=== PATIENT | male | born 1925 | race Caucasian/White ===

== ENCOUNTER 2016-05-14 11:15 | Emergency (ER) | payer MEDICARE, BC ==
--- NOTE | 2016-05-14 12:23 | ED Physician Documentation ---
PD HPI LOWER EXT INJURY - Stated complaint Stated Complaint: BOTH LEG PAIN - Chief complaint Chief Complaint: Ext Problem - History obtained from History obtained from: Patient - History of Present Illness PD HPI LOW EXT INJURY LOCATION: Both, Hip, Upper leg, Knee Type of injury: Other (no noted injury, but has onset of pain in both hips and thighs onset yesterday. Feeling like legs are weaker with walking but they move well when sitting/lying. No numbness nor swelling in lower legs.). No: Fall, Twist Where injury occurred: Home Timing - onset: Yesterday (onset some yesterday with notable worsening today when awoke from bed.) Timing - duration: Days (1) Worsened by: Moving, Palpating Associated symptoms: No: Weakness, Numbness, Swelling Similar symptoms before: Has not had sx before Recently seen: Not recently seen (but did start an OTC sleep aid a few days ago , mainly herbal med.) Review of Systems Constitutional: reports: Myalgias. denies: Fever, Chills, Fatigue Nose: denies: Rhinorrhea / runny nose, Congestion Throat: denies: Sore throat Cardiac: denies: Chest pain / pressure, Palpitations Respiratory: denies: Dyspnea, Cough, Wheezing GI: denies: Abdominal Pain, Nausea, Vomiting, Diarrhea : denies: Incontinent Skin: denies: Rash, Lesions Musculoskeletal: reports: Back pain (mild lower lumbar but not limited ROM compared to normal) Neurologic: denies: Focal weakness, Numbness PD PAST MEDICAL HISTORY - Past Medical History Past Medical History: Yes Cardiovascular: High cholesterol Neuro: Other Other Past Medical History: hydrocephalus - Past Surgical History Past Surgical History: Yes Neuro: AUTO MOTOR MECHANIC shunt - Present Medications Home Medications: Ambulatory Orders Medication Instructions Recorded Confirmed Aspirin [Aspir 81] 81 mg PO DAILY 10/30/12 10/30/12 Simvastatin [Zocor] 40 mg PO QPM 10/30/12 10/30/12 Naproxen 375 mg PO BID #20 tablet 05/14/16 Tramadol HCl 50 mg PO Q6H PRN #20 tablet 05/14/16 - Allergies Allergies/Adverse Reactions: Allergies Allergy/AdvReac Type Severity Reaction Status Date / Time No Known Drug Allergies Allergy Verified 07/07/15 17:29 - Social History Does the pt smoke?: No Smoking Status: Never smoker Does the pt drink ETOH?: Yes ETOH Use: Wine Does the pt have substance abuse?: No - Family History Family history: reports: Non contributory - Immunizations Immunizations are current?: Yes - POLST Patient has POLST: No PD ED PE NORMAL - Vitals Vital signs reviewed: Yes - General General: Alert and oriented X 3, No acute distress, Well developed/nourished, Other (able to walk with walker adequately. ) - Neck Neck: Supple, no meningeal sign, No bony TTP, No adenopathy - Cardiac Cardiac: RRR, No murmur - Respiratory Respiratory: Clear bilaterally - Abdomen Abdomen: Normal bowel sounds, Soft, Non tender - Male Male : Deferred - Rectal Rectal: Deferred - Back Back: No CVA TTP, No spinal TTP - Derm Derm: Normal color, Warm and dry, No rash - Extremities Extremities: No edema, No calf tenderness / cord, Other (good pulses, color and cap refill in toes and feet. No edema. Tenderness in thigh muscles without redness/swelling. ) - Neuro Neuro: No motor deficit, No sensory deficit Results - Vitals Vitals: Vital Signs - 24 hr 05/14/16 05/14/16 11:24 14:33 Temperature 36.8 C Heart Rate 59 L 56 L Respiratory 18 19 Rate Blood Pressure 179/75 H 184/73 H O2 Saturation 98 100 Oxygen O2 Source Room air - Labs Labs: Laboratory Tests 05/14/16 05/14/16 13:01 13:01 WBC 7.7 RBC 4.41 L Hgb 13.4 L Hct 39.1 L MCV 88.6 MCH 30.5 MCHC 34.4 RDW 13.7 Plt Count 141 MPV 9.5 Neut # 5.7 Lymph # 1.0 L [place] # 0.7 Eos # 0.2 Baso # 0.0 Absolute Nucleated RBC 0.00 Nucleated RBCs 0.0 Sodium 133 L Potassium 4.1 Chloride 98 L Carbon Dioxide 29 Anion Gap 6.0 BUN 21 H Creatinine 0.8 Estimated GFR (MDRD) 91 Glucose 98 Calcium 8.9 Total Bilirubin 0.8 AST 24 ALT 26 Alkaline Phosphatase 49 Total Creatine Kinase 63 Total Protein 6.4 L Albumin 3.8 Globulin 2.6 Albumin/Globulin Ratio 1.5 Lipase 15 L - Rads (name of study) lumbar CT Radiology: Prelim report reviewed (marked DJD in all levels with some forminal impingement at all levels. Canal crowding at all levels, particular L5S1.) PD MEDICAL DECISION MAKING - ED course Complexity details: considered differential (had thigh myalgias and hips area without injury. He is on statin, so consider myalgias related to that, though seems abrupt. New sleep aid medd could have acted as catalyst. Does not have low back pain but pain to both thighs could suggest nerve impingement. He does not have numbness nor weakness and does hav good sensation in thighs/legs, so not clearly nerve. CT done and no signs of aneurysms. No edema and has good pulses so not clearly vascular. Could be raditing from lumbar nerves. 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 You are on a statin medication and a side effect of those can be the development of upper leg pains like you are having. I would stop your Zocor for now, at least a month , and see how you do. Naproxen twice daily with food and add Tylenol and/or Tramadol for pains as needed. Follow up with your PMD in about a week. Hopefully this will be much better during that timeframe. Activity as able. Discharge Date/Time: 05/14/16 14:34
[2016-05-14] MEDS ORDERED: NAPROXEN 250 MG TABLET PO ONE (12:55)
[2016-05-14] MEDS ORDERED: ACETAMINOPHEN 325 MG TABLET PO ONE (12:55)
[2016-05-14] MEDS: ACETAMINOPHEN 325 MG TABLET PO STA (12:57)
[2016-05-14] MEDS: NAPROXEN 250 MG TABLET PO STA (12:57)
[2016-05-14 13:16] LABS: BASOPHILS % (AUTO) 0.5 %; EOSINOPHILS # (AUTO) 0.2 10^3/uL (0.0-0.7); HCT - HEMATOCRIT 39.1 % (42.0-52.0); HGB - HEMOGLOBIN 13.4 g/dL (14.0-18.0); LYMPHOCYTES % (AUTO) 13.3 %; MEAN CORPUSCULAR HEMOGLOBIN 30.5 pg (27.0-31.0); MEAN CORPUSCULAR HGB CONC 34.4 g/dL (32.0-36.0); MEAN CORPUSCULAR VOLUME 88.6 fL (80.0-94.0); MEAN PLATELET VOLUME 9.5 fL (7.4-11.4); MONOCYTES # (AUTO) 0.7 10^3/uL (0.0-1.0); MONOCYTES % (AUTO) 9.1 %; NEUTROPHILS # (AUTO) 5.7 10^3/uL (1.5-6.6); NEUTROPHILS % (AUTO) 75.1 %; RED BLOOD COUNT 4.41 10^6/uL (4.70-6.10); RED CELL DISTRIBUTION WIDTH 13.7 % (12.0-15.0); UNCORRECTED WHITE BLOOD COUNT 7.7 x10^3/uL; WHITE BLOOD COUNT 7.7 x10^3/uL (4.8-10.8)
[2016-05-14 13:32] LABS: ALBUMIN/GLOBULIN RATIO 1.5 (1.0-2.2); BILIRUBIN,TOTAL 0.8 mg/dL (0.2-1.0); CALCIUM 8.9 mg/dL (8.5-10.3); CREATININE 0.8 mg/dL (0.6-1.2); POTASSIUM 4.1 mmol/L (3.5-5.0); TOTAL PROTEIN 6.4 g/dL (6.7-8.2)
--- NOTE | 2016-05-14 13:44 | CT Preliminary Report ---
Exam: CT Lumbar Spine W/O IMPRESSION: 1. No acute bony abnormality. 2. Mild central spinal canal stenosis L1-2. 3. Djiasena-ey-ruyyjc central spinal canal stenosis and moderate bilateral foraminal compromise L2-3. 3. Central and left-sided disk herniation, Marked central spinal canal stenosis, moderate right and m oderate to marked left neuroforaminal compromise at L3-L4. 4. Marked central spinal canal stenosis, moderate to marked right and moderate left L4-L5 neural fora chinyere compromise L4-L5. 5. Central disk herniation, Marked bilateral L5-S1 neuroforaminal compromise [facility] SITE ID: [id number]
--- NOTE | 2016-05-14 14:20 | CT Report ---
EXAM: CT LUMBAR SPINE WITHOUT CONTRAST EXAM DATE: 05/14/2016 01:23 PM. CLINICAL HISTORY: Low back/pelvic pain; bilateral thighs pain. COMPARISONS: None. TECHNIQUE: Thin-section axial images were acquired of the lumbar spine from mid body T12 to S3-S4 wit hout contrast. Post-processing: Coronal and sagittal reformats. Other: None. In accordance with CT protocol optimization, one or more of the following dose reduction techniques w ere utilized for this exam: automated exposure control, adjustment of mA and/or KV based on patient s ize, or use of iterative reconstructive technique. FINDINGS: Alignment: 2 mm degenerative retrolisthesis L1 on L2. 4 mm degenerative retrolisthesis L5 on S1. Bones: Five yap-drs-slwuruo lumbar vertebral bodies are present. Old very minimal anterior wedging L1. Bony central spinal canal schedule a small throughout the lumbar spine due to short pedicles. Disk Levels/Facets: T12-L1: Unremarkable. L1-L2: Moderate to marked narrowing with vacuum disk phenomena. Mild degenerative changes L1-L2 facet s. Mild central spinal canal stenosis. L2-L3: Moderate to marked narrowing with vacuum disk phenomena. Large symmetrical disk bulge. Mild de generative changes L2-L3 facets bilaterally. Ukbnjybp-bh-rieras central spinal canal stenosis, 7 x 9 mm thecal sac, moderate bilateral L2-L3 neural foraminal compromise. L3-L4: Marked narrowing vacuum disk phenomena. Large central and far left disk herniation L3-L4. Mode rate degenerative changes L3-L4 facets bilaterally. Marked central spinal canal stenosis, 4 x 5 mm th ecal sac. Moderate right and moderate to marked left L3-L4 neural foraminal compromise. L4-L5: Marked narrowing with vacuum disk phenomena. Large symmetrical disk bulge. Hpebxzmc-vu-aecuux right and moderate left L4-L5 facet degenerative changes. Nicouqvb-pu-omidfz central spinal canal dottie nosis, 5 x 8 mm thecal sac. Moderate to marked right and moderate left L4-L5 neural foraminal comprom ise. L5-S1: Marked narrowing vacuum disk phenomena. Large central disk herniation L5-S1. Mild degenerative changes L5-S1 facets bilaterally. No central spinal canal stenosis. Marked bilateral L5-S1 neural fo raminal compromise. Musculature: Normal. No fatty atrophy. Other: Cholecystectomy. Equivocal right renal artery origin stent. IMPRESSION: 1. No acute bony abnormality. 2. Mild central spinal canal stenosis L1-L2. 3. Ymudridq-bf-xlspjd central spinal canal stenosis and moderate bilateral foraminal compromise L2-L3 . 3. Central and left-sided disk herniation, marked central spinal canal stenosis, moderate right and m oderate to marked left neural foraminal compromise at L3-L4. 4. Marked central spinal canal stenosis, moderate to marked right and moderate left L4-L5 neural fora chinyere compromise L4-L5. 5. Central disk herniation, marked bilateral L5-S1 neural foraminal compromise. [facility] Referring Provider Line: [phone] SITE ID: [id number]
[2016-05-14 14:33] VITALS: BP 184/73
== END 2016-05-14 14:34 | disposition home or self-care (01) ==
LOC: ED 11:15
DX: M79.652 Pain in left thigh (principal); M79.651 Pain in right thigh
CPT/HCPCS: 36415; 72131; 80053; 82550; 83690; 85025; 99283; 99284

== ENCOUNTER 2016-11-07 14:52 | Emergency (ER) | payer MEDICARE, BC ==
--- NOTE | 2016-11-07 16:27 | XRAY Preliminary Report ---
Exam: XR Lumbar Spine 2 View IMPRESSION: 1. No acute lumbar spine abnormality identified. 2. Severe multilevel degenerative lumbar disk disease. [facility] SITE ID: [id number]
--- NOTE | 2016-11-07 16:30 | XRAY Report ---
EXAM: LUMBOSACRAL SPINE RADIOGRAPHY EXAM DATE: 11/07/2016 04:16 PM. CLINICAL HISTORY: Fell 2 days ago, with low back pain. COMPARISONS: CT 05/14/2016. TECHNIQUE: 3 views. FINDINGS: Alignment: Normal. No spondylolisthesis or scoliosis. Bones: Five wkt-oqu-pjtrnrz lumbar vertebral bodies are present. No fractures or bone lesions. Disks: Severe disk space narrowing with endplate spurring at all lumbar levels. Facets: Widespread facet arthropathy. Sacroiliac Joints: Unremarkable. Soft Tissues: Heavily calcified non-dilated aorta noted. TRANSFORMER BUILDER shunt tubing noted, ending in the pelvis. IMPRESSION: 1. No acute lumbar spine abnormality identified. 2. Severe multilevel degenerative lumbar disk disease. [facility] Referring Provider Line: [phone] SITE ID: [id number]
--- NOTE | 2016-11-07 16:49 | ED Physician Documentation ---
PD HPI BACK PAIN - Stated complaint Stated Complaint: FALL BACK INJ - Chief complaint Chief Complaint: Back Pain - History obtained from History obtained from: Patient - History of Present Illness Timing - onset: How many days ago (2) Timing - details: Still present Location: Lower Quality: Pain Associated symptoms: No: Fever, Weakness, Numbness, Incontinent of urine Worsened by: Movement - Additional information Additional information: The patient is a 89-year-old male who presents with lower back pain. He was making his bed 2 days ago when he lost his balance and fell forward, twisting his lower back. He fell onto a carpeted floor. He denies any other injuries. He denies hitting his head or losing consciousness. He normally uses a walker when ambulating. Review of Systems Constitutional: denies: Fever Ears: denies: Tinnitus/ringing Cardiac: denies: Chest pain / pressure Respiratory: denies: Dyspnea, Cough GI: denies: Abdominal Pain, Nausea, Vomiting : denies: Dysuria, Incontinent Skin: denies: Rash, Abrasion (s) Musculoskeletal: reports: Back pain. denies: Neck pain, Extremity pain Neurologic: denies: Focal weakness, Numbness, Headache, Head injury, LOC PD PAST MEDICAL HISTORY - Past Medical History Past Medical History: Yes Cardiovascular: High cholesterol Neuro: Other - Past Surgical History Past Surgical History: Yes Neuro: LIFE ENRICHMENT SPECIALIST shunt - Present Medications Home Medications: Ambulatory Orders Medication Instructions Recorded Confirmed Aspirin [Aspir 81] 81 mg PO DAILY 10/30/12 11/07/16 Simvastatin [Zocor] 40 mg PO QPM 10/30/12 11/07/16 Naproxen 375 mg PO BID #20 tablet 05/14/16 11/07/16 - Allergies Allergies/Adverse Reactions: Allergies Allergy/AdvReac Type Severity Reaction Status Date / Time No Known Drug Allergies Allergy Verified 11/07/16 15:00 - Social History Does the pt smoke?: No Smoking Status: Never smoker Does the pt drink ETOH?: Yes Does the pt have substance abuse?: No - Immunizations Immunizations are current?: Yes - POLST Patient has POLST: No PD ED PE NORMAL - Vitals Vital signs reviewed: Yes (Systolic hypertension.) - General General: Alert and oriented X 3, Well developed/nourished - HEENT HEENT: Atraumatic - Neck Neck: No bony TTP - Cardiac Cardiac: RRR - Respiratory Respiratory: No respiratory distress, Clear bilaterally - Abdomen Abdomen: Soft, Non tender - Back Back: No CVA TTP, Other (There is mild tenderness to palpation across the lower lumbar spine. There is no focal tenderness to palpation.) - Derm Derm: No rash - Extremities Extremities: No edema, No calf tenderness / cord - Neuro Neuro: Alert and oriented X 3, No motor deficit, No sensory deficit Results - Vitals Vitals: Oxygen O2 Source Room air - Rads (name of study) LS spine xrays Radiology: Prelim report reviewed, EMP read contemporaneously, See rad report ( No acute lumbar spine abnormality identified. Severe multilevel degenerative lumbar disc disease.) PD MEDICAL DECISION MAKING - ED course Complexity details: reviewed results, re-evaluated patient, considered differential, d/w patient, d/w family ED course: The patient's presentation is most consistent with a sprain of his lower back caused by falling 2 days ago. There is no evidence of fracture or dislocation on x-ray examination of the lumbar spine. I discussed with him and his family the expected course of injury, symptomatic treatment and outpatient follow-up, as well as potentially worrisome signs or symptoms that should prompt reevaluation in the emergency department. Departure - Departure Disposition: 01 Home, Self Care Clinical Impression: Fall Qualifiers: Encounter type: initial encounter Qualified Code(s): W19.XXXA - Unspecified fall, initial encounter Back pain Qualifiers: Back pain location: low back pain Chronicity: acute Back pain laterality: bilateral Sciatica presence: without sciatica Qualified Code(s): M54.5 - Low back pain Condition: Stable Instructions: ED Low Back Pain Injury Follow-Up: Riley Peguero DO [Primary Care Provider] - Comments: Apply ice pack to your lower back intermittently for the next 3 days. You can use Aleve twice daily if needed for back pain. Let pain be your guide to activity level. Follow up with your primary physician within 2 weeks. Call to schedule an appointment. Return to the emergency department if you develop increasing back pain or otherwise worsening symptoms. Discharge Date/Time: 11/07/16 17:02
[2016-11-07 17:03] VITALS: BP 179/81
== END 2016-11-07 17:02 | disposition home or self-care (01) ==
LOC: ED 14:52
DX: M54.5 Low back pain (principal); W18.39XA Other fall on same level, initial encounter; Y93.E9 Activity, other interior property and clothing maintenance; Y92.013 Bedroom of single-family (private) house as the place of occurrence of the external cause; M51.36 Other intervertebral disc degeneration, lumbar region; E78.00 Pure hypercholesterolemia, unspecified; Z98.2 Presence of cerebrospinal fluid drainage device; Z79.82 Long term (current) use of aspirin
CPT/HCPCS: 72100; 99283

== ENCOUNTER 2017-01-28 03:13 | Outpatient (CLI) | payer MEDICARE, BC | END 2017-01-28 03:14 | disposition EMS.NT | LOC: EMS 03:13 | PROVIDERS: ATTEND Surgery | DX: Z03.89 Encounter for observation for other suspected diseases and conditions ruled out (principal); W18.11XA Fall from or off toilet without subsequent striking against object, initial encounter; Y92.002 Bathroom of unspecified non-institutional (private) residence as the place of occurrence of the external cause ==